=== PATIENT | female | born 1955 | race Caucasian/White ===

== ENCOUNTER 2019-01-21 13:40 | Observation (INO) | payer MEDICARE, OTHER, SELFPAY ==
[2019-01-21] VITALS (31 sets, daily range): BP systolic 111–171; BP diastolic 58–98; PULSE 53–72; RESP 10–22; TEMP 36.3–37; O2SAT 96–99
--- NOTE | 2019-01-21 13:59 | DI.RAD_ITS ---
SYMPTOMS/DIAGNOSIS: SYNCOPE, ? ACUTE DISEASE PA AND LATERAL CHEST: The heart is normal in size. The lungs are clear. The mediastinal structures and pleura appear intact. CONCLUSION: Normal chest.
--- NOTE | 2019-01-21 14:00 | W.ED.GENAD ---
Discharge Plan Disposition Patient Disposition: [facility] INPATIENT Condition: Stable Discharge Details Chief Complaint: Dizzy/Sync Clinical Impression: Syncope, Epigastric pain Admit Date/Time: 01/21/19 15:33 Admit Provider: Alireza Del Angel Attending Provider: Alireza Del Angel Primary Care Provider: Mateo Mars ED Provider: Cindi Vinson Discharge Data Discharge Date/Time-TO BE ENTERED AT DEPARTURE: 01/21/19 16:17 Medical Decision Making 1415 -- 63-year-old female with a history of myocarditis, GERD, depression, hypertension who presents with lightheadedness, diaphoresis, epigastric pain that started while going uphill on a bike with a syncopal episode upon getting off the bike today. She admits to a family history of cardiac disease and diabetes but denies any previous past medical history of diabetes or stent placement. EKG notes a rate of 61, sinus with no acute ST ischemic changes. Heart rate 50s. She is on a beta-andrea. Blood pressure mildly hypertensive 147/66. She is afebrile and appears nontoxic. She appears generally fatigued but no focal deficits. No acute findings on exam. No murmur, lungs clear, abdomen soft nontender. Suspicion high for a cardiac etiology based on history. Cardiac work-up ordered on arrival and will plan for admission for observation and serial troponins. 1500 -- Labs and imaging reviewed and unremarkable. Troponin negative. Glucose 128. Chest x-ray negative. 1515 -- Case discussed with hospitalist -accepts patient for admission. Medical Records Medical records reviewed: Yes I reviewed the patient's medical records. Imaging Data Radiologic Study: Radiologist's impression: PA AND LATERAL CHEST: The heart is normal in size. The lungs are clear. The mediastinal structures and pleura appear intact. CONCLUSION: Normal chest. Lab Data Lab results reviewed: Yes I reviewed the patient's lab results. Laboratory Tests Range/Units 01/21/19 01/21/19 13:50 13:50 WBC (4.4-10.8) k/cumm 5.92 RBC (4.00-5.20) m/cumm 5.21 H Hgb (12.0-15.5) g/dL 14.5 Hct (36.0-46.0) % 43.6 MCV (80-95) fL 83.7 MCH (27.0-33.0) pg 27.8 MCHC (32.0-36.0) g/dL 33.3 RDW (11.7-14.6) % 13.4 Plt Count (130-400) x1000/uL 440 H MPV (8.0-11.0) fL 9.9 Immature Gran % 0.2 Neutrophils % 63.6 Lymphocytes % 26.2 Monocytes % 7.3 Eosinophils % 2.5 Basophils % 0.2 Absolute Neutrophils (1.2-6.7) k/cumm 3.77 Absolute Lymphocytes (1.2-3.4) k/cumm 1.55 Absolute Monocytes (0.11-0.7) k/cumm 0.43 Absolute Eosinophils (0.0-0.7) k/cumm 0.15 Absolute Basophils (0.0-0.2) k/cumm 0.01 Sodium (136-145) mmol/L 138 Potassium (3.5-5.1) mmol/L 3.5 Chloride (98-107) mmol/L 100 Carbon Dioxide (21.0-32.0) mmol/L 25.1 Anion Gap (3-11) mmol/L 12.9 H BUN (7-18) mg/dL 7 Creatinine (0.55-1.02) mg/dL 1.16 H Estimated GFR/1.73 m2 (mL/min/1.73m2) 47.34 Glucose (70-100) mg/dL 128 H Calcium (8.5-10.1) mg/dL 9.3 Magnesium (1.8-2.4) mg/dL 2.1 Total Bilirubin (0.2-1.0) mg/dL 1.0 AST (15-37) U/L 31 ALT (12-78) U/L 65 Alkaline Phosphatase (46-116) U/L 86 Troponin I (0.00-0.06) ng/mL < 0.05 Total Protein (6.4-8.2) g/dL 8.5 H Albumin (3.4-5.0) g/dL 3.8 ECG Data Attestation: I personally reviewed and interpreted this ECG (s) as follows: Interpretation: Rate of 61, sinus, no acute ST elevation or depression. QTc 423. MA 180. QRS 89. HPI General Mode of arrival: ambulatory. Date/Time Provider Initiated Documentation: 01/21/19 13:57. Limitations to Documentation: no limitations. Information obtained by: patient. HPI Narrative: Patient is a 63-year-old female with a history of hypertension, myocarditis who presents the ED with complaint of syncopal episode while riding her bike today. She states she has been riding her bike over the summer but has not ridden over the past 2 weeks. She states today she was going up a hill when she became lightheaded and sweaty and dizzy with epigastric pain. She states she got to the top of the hill and got off her bike and passed out. She still admits to some epigastric discomfort and feeling generally fatigued but denies any chest pain or shortness of breath at this time. She states she has had similar symptoms of lightheadedness while riding her bike over the past few weeks, but not as significant with a syncopal episode today. Related Data Home Medications Medication Instructions Recorded Confirmed Mag Tab Sr 2 tab PO BID 01/21/19 amlodipine [Norvasc] 10 mg PO DAILY 01/21/19 01/21/19 ascorbic acid (vitamin C) [Vitamin 500 mg PO DAILY 01/21/19 01/21/19 C] aspirin [Aspir-Low] 81 mg PO DAILY 01/21/19 01/21/19 bisoprolol fumarate 5 mg PO DAILY 01/21/19 01/21/19 calcium carbonate-vitamin D3 1 tab PO DAILY 01/21/19 01/21/19 [Calcium 500 + D (D3)] doxepin 50 mg PO QHS 01/21/19 01/21/19 ergocalciferol (vitamin D2) 50,000 unit PO .Q2WEEK 01/21/19 01/21/19 [Vitamin D2] hydrochlorothiazide 25 mg PO DAILY 01/21/19 01/21/19 ibuprofen [IBU-200] 600 mg PO Q6H PRN 01/21/19 01/21/19 multivitamin 1 tab PO DAILY 01/21/19 01/21/19 pantoprazole [Protonix] 40 mg PO DAILY 01/21/19 01/21/19 Allergies Allergy/AdvReac Type Severity Reaction Status Date / Time adhesive tape Allergy paper Unverified 01/21/19 14:08 tape--blistering Iodinated Contrast Media Allergy Throat Unverified 01/21/19 14:08 closing sensation pirbuterol Allergy fainted Unverified 01/21/19 14:08 [From [facility]] Sulfa (Sulfonamide Allergy Skin Rash Unverified 01/21/19 13:55 Antibiotics) General Stated Complaint: Dizzy/Sync EDITH: 2 Review of Systems Review of Systems All systems reviewed & are unremarkable except as noted in HPI and below Constitutional Reports as per HPI, Denies chills and Denies fever(s) Eyes Denies blurry vision ENT Reports dizziness, Denies sore throat and Denies throat swelling Cardiovascular Denies chest pain, Reports syncope and Denies dyspnea Respiratory Denies cough and Denies dyspnea Gastrointestinal Reports abdominal pain, Denies diarrhea and Denies vomiting Genitourinary Denies hematuria and Denies dysuria Musculoskeletal Denies back pain and Denies numbness Integumentary/Breasts Denies lesions and Denies rash Neurologic Reports dizziness, Reports syncope, Denies focal weakness and Denies numbness Allergic/Immunologic Denies throat swelling [facility] Medical History Depression (Chronic) GERD (gastroesophageal reflux disease) (Chronic) HTN (hypertension) (Chronic) Myocarditis (Acute) Social History Smoking/Tobacco Use Status: Former Tobacco Use Alcohol Intake: never Substance use type: does not use Do you feel safe at home: Yes Do you feel safe in your relationship?: Yes Exam Const General: cooperative, healthy appearing and no acute distress [facility] Head: normal to inspection Face and sinus: normal facial exam Eyes General: appearance normal, both eyes and all related structures Pupils: PERRL EOM: EOM intact bilaterally Neck Neck: normal visual inspection and No submandibular swelling Lymphatic: no lymphadenopathy noted Chest Chest: normal inspection of the chest and no tenderness Resp Effort & Inspection: normal respiratory effort and able to speak in complete sentences Auscultation: clear to auscultation bilaterally Cardio Rate: regular rate Rhythm: regular rhythm GI Inspection: normal to inspection Palpation: soft, not firm, not rigid and nontender Auscultation: normal bowel sounds Skin General skin exam: no rashes or lesions noted Neuro General: alert, awake and oriented x3 Cognition: normal cognition Speech: speech normal Motor: muscle tone normal throughout Sensory Exam: no sensory deficits noted Extrem General: normal to inspection, full ROM, normal capillary refill, no calf tenderness bilaterally and no edema Psych Appearance: grossly normal Mental Status: mental status grossly normal Speech and Movement: speech and movement normal Affect: normal affect Course Vital Signs Temperature 97.9 F 01/21/19 13:51 Pulse 59 L 01/21/19 13:51 Respiratory Rate 22 01/21/19 13:51 Blood Pressure 147/66 H 01/21/19 13:51 Pulse Oximetry 99 01/21/19 13:51 Temperature 97.9 F 01/21/19 13:51 Temperature Source Temporal Artery Scan 01/21/19 13:51 Pulse 59 L 01/21/19 13:51 Respiratory Rate 22 01/21/19 13:51 Respiratory Effort Non-Labored 01/21/19 13:54 Blood Pressure 147/66 H 01/21/19 13:51 Blood Pressure Position Supine 01/21/19 13:51 Pulse Oximetry 99 01/21/19 13:51 Oxygen Delivery Method Room Air 01/21/19 13:51 Oxygen Flow Rate 0 01/21/19 13:51 Pain Level 2 01/21/19 13:51
[2019-01-21 14:09] LABS: Abs Immature Grans 0.01 k/cumm (0.0-0.09); Absolute Basophil Count 0.01 k/cumm (0.0-0.2); Absolute Eosinophil Count 0.15 k/cumm (0.0-0.7); Absolute Lymphocyte Count 1.55 k/cumm (1.2-3.4); Absolute Monocyte Count 0.43 k/cumm (0.11-0.7); Absolute Neutrophil Count 3.77 k/cumm (1.2-6.7); Basophils % 0.2; Eosinophils % 2.5; HCT 43.6 % (36.0-46.0); HGB 14.5 g/dL (12.0-15.5); Immature Grans % 0.2; Lymphocytes % 26.2; Mean Corp. HGB Concentration 33.3 g/dL (32.0-36.0); Mean Corpuscular Hemoglobin 27.8 pg (27.0-33.0); Mean Corpuscular Volume 83.7 fL (80-95); Mean Platelet Volume 9.9 fL (8.0-11.0); Monocytes % 7.3; Neutrophils % 63.6; Platelet Count 440 x1000/uL (130-400); RBC 5.21 m/cumm (4.00-5.20); RBC Distribution Width 13.4 % (11.7-14.6); White Blood Cell Count 5.92 k/cumm (4.4-10.8)
[2019-01-21] MEDS: Normal Saline 1,000 ML 1000 ML IV (14:10)
[2019-01-21 14:27] LABS: ALT 65 U/L (12-78); AST 31 U/L (15-37); Albumin 3.8 g/dL (3.4-5.0); Alkaline Phosphatase 86 U/L (46-116); Anion Gap 12.9 mmol/L (3-11); BUN 7 mg/dL (7-18); CO2 25.1 mmol/L (21.0-32.0); CREATININE 1.16 mg/dL (0.55-1.02); Calcium 9.3 mg/dL (8.5-10.1); Chloride 100 mmol/L (98-107); Estimated GFR 47.34 (mL/min/1.73m2); Glucose 128 mg/dL (70-100); Magnesium 2.1 mg/dL (1.8-2.4); Potassium 3.5 mmol/L (3.5-5.1); Sodium 138 mmol/L (136-145); Total Protein 8.5 g/dL (6.4-8.2); Troponin I < 0.05 ng/mL (0.00-0.06)
[2019-01-21] MEDS: Ondansetron 4 MG/2 ML VIAL IVP (15:09)
[2019-01-21] MEDS: Potassium Chloride 20 MEQ TABCR 40 MEQ PO (16:03)
--- NOTE | 2019-01-21 16:03 | W.PM.HP.N ---
Date of service: 01/21/19 Time of Service: 16:04 Assessment and Plan (1) Syncope: Current visit: Yes Status: Chronic Episode of exertional syncope in patient experiencing worsening sensations of dizziness/lightheadedness with exertion over the past few weeks. Mrs. Bob also has a significant family history of CAD, and now complaining of epigastric and left shoulder discomfort. ECG non-ischemic. - Rule out for ACS with serial cardiac biomarkers, and maintain on telemetry. - Check ECHO, and obtain exercise nuclear stress test in the morning. - Given patient's family history and current symptoms, suspicion for underlying CAD is high. Current Heart Score of 5. Continue daily ASA, BB therapy, and initiate high potency statin. If positive troponin will initiate anticoagulation as well. Await result for further testing, with low threshold for transfer. History of Present Illness Chief Complaint: Exertional Syncope Narrative: Very pleasant 63 year old woman with a prior history of HTN and DM, admitted from [facility] Emergency Department on 01/21 following a syncopal episode following an exertional activity. Mrs. Bob has a past Medical History significant for DM, HTN, GERD, and Depression. She also reports an episode of Chest Pain and pressure in 2004 with positive cardiac biomarkers that led to a negative LHC, eventually diagnosed with Myocarditis/Pericarditis. Her family history is significant for CAD in 2 brothers, 1 sister, her father, both grandfathers, a grandmother, and several aunts and uncles. The patient reports recent episodes of lightheadedness and feeling unwell following exertional activities over the last few weeks. Today she was riding her bike up an incline when she began to feel unwell, and had an apparent syncopal episode following. Her symptoms also included diaphoresis, nausea, and later epigastric pain and left shoulder discomfort. Work-up the ED showed an essentially normal ECG, negative initial troponin, and normal labs. Her CXR was also reportedly negative for pathology. Given her history she was admitted for further evaluation and treatment. Review of Systems Review of Systems All systems reviewed & are unremarkable except as noted in HPI and below PFSH Social History Smoking/Tobacco Use Status: Former Tobacco Use Alcohol Intake: never Substance use type: does not use Do you feel safe at home: Yes Do you feel safe in your relationship?: Yes Meds Home Medications Medication Instructions Recorded Confirmed Type Mag Tab Sr 2 tab PO BID 01/21/19 History amlodipine [Norvasc] 10 mg PO DAILY 01/21/19 01/21/19 History ascorbic acid (vitamin C) [Vitamin 500 mg PO DAILY 01/21/19 01/21/19 History C] aspirin [Aspir-Low] 81 mg PO DAILY 01/21/19 01/21/19 History bisoprolol fumarate 5 mg PO DAILY 01/21/19 01/21/19 History calcium carbonate-vitamin D3 1 tab PO DAILY 01/21/19 01/21/19 History [Calcium 500 + D (D3)] doxepin 50 mg PO QHS 01/21/19 01/21/19 History ergocalciferol (vitamin D2) 50,000 unit PO .Q2WEEK 01/21/19 01/21/19 History [Vitamin D2] hydrochlorothiazide 25 mg PO DAILY 01/21/19 01/21/19 History ibuprofen [IBU-200] 600 mg PO Q6H PRN 01/21/19 01/21/19 History multivitamin 1 tab PO DAILY 01/21/19 01/21/19 History pantoprazole [Protonix] 40 mg PO DAILY 01/21/19 01/21/19 History Allergies Allergy/AdvReac Type Severity Reaction Status Date / Time adhesive tape Allergy paper Unverified 01/21/19 14:08 tape--blistering Iodinated Contrast Media Allergy Throat Unverified 01/21/19 14:08 closing sensation pirbuterol Allergy fainted [facility]ver[facility]19 [facility] Sulfa (Sulfonamide Allergy Skin Rash Unverified 01/21/19 13:55 Antibiotics) Exam Narrative Exam Narrative: General: Patient appears comfortable, AAOX3, NAD Neck: Supple CV: Regular, nontachycardic, S1S2, No rubs, murmurs, or gallops. Pulmonary: Clear to auscultation bilaterally, no crackles, wheezing, or rhonchi Abdomen: + Bowel Sounds, soft, nondistended, mild subjective epigastric discomfort on palpation Vascular: No lower extremity edema Psych: Normal mood and affect. Results Labs : 01/21/19 13:50 01/21/19 13:50 Laboratory Results - last 24 hr 01/21/19 01/21/19 13:50 13:50 WBC 5.92 RBC 5.21 H Hgb 14.5 Hct 43.6 MCV 83.7 MCH 27.8 MCHC 33.3 RDW 13.4 Plt Count 440 H MPV 9.9 Immature Gran % 0.2 Neutrophils % 63.6 Lymphocytes % 26.2 Monocytes % 7.3 Eosinophils % 2.5 Basophils % 0.2 Absolute Neutrophils 3.77 Absolute Lymphocytes 1.55 Absolute Monocytes 0.43 Absolute Eosinophils 0.15 Absolute Basophils 0.01 Sodium 138 Potassium 3.5 Chloride 100 Carbon Dioxide 25.1 Anion Gap 12.9 H BUN 7 Creatinine 1.16 H Estimated GFR/1.73 m2 47.34 Glucose 128 H Calcium 9.3 Magnesium 2.1 Total Bilirubin 1.0 AST 31 ALT 65 Alkaline Phosphatase 86 Troponin I < 0.05 Total Protein 8.5 H Albumin 3.8 Last Vital Signs Temp 36.6 C 01/21/19 16:00 Pulse 67 01/21/19 16:00 Resp 14 01/21/19 16:00 BP 171/79 H 01/21/19 16:00 Pulse Ox 97 01/21/19 16:00
[2019-01-21] MEDS: Enoxaparin 40 MG/0.4 ML SYR SC (17:43)
--- NOTE | 2019-01-21 18:50 | NUR.NOTE ---
Pt admitted from ER to [facility]. Room 231. Pt is alert and oriented times 3. VSS. Lungs clear. positive BS. Pulses WNL. Oriented pt to room and call light, oriented pt to plan of care. Tele showing SB. Pt does complain of not feeling right. Dizzy when ambulating from bed to bathroom. Pt educated to use call light to ask for help when walking. Bed alarms are on. Nursing Note:
[2019-01-21 21:13] LABS: Troponin I < 0.05 ng/mL (0.00-0.06)
[2019-01-21] MEDS: Doxepin 50 MG CAP PO (21:14)
[2019-01-22] VITALS (11 sets, daily range): BP systolic 110–150; BP diastolic 66–101; PULSE 50–74; RESP 14–18; TEMP 36.2–37; O2SAT 97–99
[2019-01-22 01:01] LABS: Troponin I < 0.05 ng/mL (0.00-0.06)
[2019-01-22 06:04] LABS: Abs Immature Grans 0.01 k/cumm (0.0-0.09); Absolute Basophil Count 0.01 k/cumm (0.0-0.2); Absolute Eosinophil Count 0.17 k/cumm (0.0-0.7); Absolute Lymphocyte Count 2.08 k/cumm (1.2-3.4); Absolute Monocyte Count 0.47 k/cumm (0.11-0.7); Basophils % 0.2; HCT 41.1 % (36.0-46.0); HGB 13.7 g/dL (12.0-15.5); Immature Grans % 0.2; Lymphocytes % 36.2; Mean Corp. HGB Concentration 33.3 g/dL (32.0-36.0); Mean Corpuscular Hemoglobin 28.1 pg (27.0-33.0); Mean Corpuscular Volume 84.4 fL (80-95); Mean Platelet Volume 9.7 fL (8.0-11.0); Monocytes % 8.2; Neutrophils % 52.2; Platelet Count 412 x1000/uL (130-400); RBC 4.87 m/cumm (4.00-5.20); RBC Distribution Width 13.6 % (11.7-14.6); White Blood Cell Count 5.74 k/cumm (4.4-10.8)
[2019-01-22 06:20] LABS: Anion Gap 8.8 mmol/L (3-11); BUN 11 mg/dL (7-18); CO2 26.2 mmol/L (21.0-32.0); CREATININE 0.91 mg/dL (0.55-1.02); Calcium 9.1 mg/dL (8.5-10.1); Chloride 102 mmol/L (98-107); Glucose 96 mg/dL (70-100); Magnesium 2.1 mg/dL (1.8-2.4); Potassium 4.3 mmol/L (3.5-5.1); Sodium 137 mmol/L (136-145)
[2019-01-22 06:23] LABS: Troponin I < 0.05 ng/mL (0.00-0.06)
[2019-01-22 06:35] LABS: Calculated LDL 148 mg/dL; Cholesterol 219 mg/dL (50-200); HDL Cholesterol 56 mg/dL (40-60); Triglyceride 79 mg/dL (30-150)
[2019-01-22 07:49] LABS: Hemoglobin A1C 5.6 % (4.5-6.2)
--- NOTE | 2019-01-22 08:02 | PHARADMIT ---
Admission Pharmacy Clinical Review CHEST PAIN SYNCOPE Code Status Full Code Current Weight 83.7 kg Renally Cleared and Narrow Therapeutic Index Meds CRCL ~51ML/MIN QTc Value / Action Taken 423 BP Control, Fever 150/75 AFEBRILE Electrolytes reviewed OK DVT Prophylaxis ENOXAPARIN Opiate Usage / Scheduled Bowel Regimen Ordered NO/PRN Plt/SCr for Heparin / Enoxaparin 412/0.91 INR for Warfarin NA H/H stable, WBC/Bands 13.7/41.1 WBC 5.74 Antibiotic appropriateness NA Cultures and Sensitivities NA Surgical ABX d/c within 24 hr NA DM control / Insulin Dosing NA Heart Failure (Check EF%) (NICOLAS's, B-Block, Diuretics) CHF NOT LISTED BUT ON BISOPROLOL,AMLODIPINE AND HCTZ IV to PO Switch Home Meds Reviewed Home Meds Not Ordered Mag Tab Sr 2 tab PO BID Comments
[2019-01-22] MEDS: amLODIPine 10 MG TAB PO (08:20)
[2019-01-22] MEDS: hydroCHLOROthiazide 25 MG TAB PO (08:20)
[2019-01-22] MEDS: Multivitamin TAB 1 TAB PO (08:21)
[2019-01-22] MEDS: Pantoprazole 40 MG TABCR PO (08:22)
[2019-01-22] MEDS: Aspirin E.C. 81 MG TABEC PO (08:22)
[2019-01-22] MEDS: Ascorbic Acid 500 MG TAB PO (08:22)
--- NOTE | 2019-01-22 08:43 | INITIAL_ITS ---
Care Management Initial Assess REASON FOR HOSPITALIZATION:: Chest Pain, Syncope PAST MEDICAL HISTORY/PAST SURGICAL HISTORY:: Depression, GERD, HTN, Myocarditis PREVIOUS FUNCTIONAL STATUS/SOCIAL/FAMILY SUPPORTS:: Susanna resides in [place]. She is independent at baseline and was bike riding when she experienced the symptoms leading to her admission. She has two daughters that reside seperately in [place]. CURRENT FUNCTIONAL STATUS:: Susanna is out of the room due to work up testing. Her patiently awaits her return. ADVANCE DIRECTIVES:: None on file at [facility]. Has patient been provided with information about the portal?: No Did the patient sign up for the portal?: No CODE STATUS:: Full Code INSURANCE COVERAGE / FINANCIAL ISSUES:: [employer], Medicare CURRENT HOME/COMMUNITY SERVICES/EQUIPMENT:: No current services or equipment. PRIMARY CARE PHYSICIAN:: Mateo Mars POTENTIAL DISCHARGE NEEDS:: Work-up for chest pain, MPI stress test. PATIENT/FAMILY EDUCATION NEEDS:: Review discharge instructions, discuss Ask Me Three. ANTICIPATED BARRIERS TO DISCHARGE:: None identified at this time. TRANSPORTATION:: Dependent on disposition. PLAN:: Susanna will have a work up incluing imaging and MPI stress test. She will either transfer or discharge home with an outpatient follow up plan per MD. Transportation dependent on disposition.
--- NOTE | 2019-01-22 09:00 | MERGE_ITS ---
*[facility]* *[facility]* [address] [place] [address] Date of study: 01/22/2019 Transthoracic Echocardiography M-mode, complete 2D, complete spectral Doppler, and color Doppler *STUDY CONCLUSIONS* Summary: 1. Left ventricle: The cavity size was normal. There was mild focal basal hypertrophy of the septum. Systolic function was normal. The estimated ejection fraction was 55-60%. There was no dynamic obstruction. Wall motion was normal; there were no regional wall motion abnormalities. Findings consistent with diastolic dysfunction. Doppler parameters are consistent with high ventricular filling pressure. 2. Right ventricle: The cavity size was normal. Wall thickness was normal. Systolic function was normal. *PATIENT PRESENTATION* Height: 160cm (63in ) S/D Pressure: 110 / 70 Weight: 83.5kg (183.6lb ) BSA: 1.96m^2 Test start time: 09:10 AM. Test stop time: 10:00 AM. PERFORMING Unknown CONSULTING Alireza Del Angel ORDERING Alireza Del Angel REFERRING Alireza Del Angel PERFORMING [facility] PIE FILLER RT Jonathon Bennett)(SHAYNE), KRISTA *PROCEDURE DATA* Procedure information: The patient was identified by two identifiers. This study was interpreted by [facility]. Pertinent images and digital data are archived for permanent storage and are available for subsequent review. No prior study was available for comparison. Study status: Routine. Transthoracic echocardiography. M-mode, complete 2D, complete spectral Doppler, and color Doppler. A Transthoracic Echocardiogram was performed. Scanning was performed from the parasternal, apical, subcostal, and suprasternal notch acoustic windows. Images were obtained using an [id number] cardiac ultrasound machine. Image quality was adequate. Study completion: The patient tolerated the procedure well. There were no complications. History: PMH: Chest pain with syncope. *CARDIAC ANATOMY* Left ventricle: The cavity size was normal. There was mild focal basal hypertrophy of the septum. Systolic function was normal. The estimated ejection fraction was 55-60%. There was no dynamic obstruction. Wall motion was normal; there were no regional wall motion abnormalities. Findings consistent with diastolic dysfunction. Doppler parameters are consistent with high ventricular filling pressure. Aortic valve: Trileaflet; normal thickness leaflets. Mobility was not restricted. Doppler: Transvalvular velocity was within the normal range. There was no stenosis. There was no significant regurgitation. VTI ratio of LVOT to aortic valve: 0.79. Valve area (VTI): 2.2cm^2. Indexed valve area (VTI): 1.1cm^2/m^2. Peak velocity ratio of LVOT to aortic valve: 0.84. Valve area (Vmax): 2.3cm^2. Indexed valve area (Vmax): 1.2cm^2/m^2. Mean velocity ratio of LVOT to aortic valve: 0.83. Valve area (Vmean): 2.3cm^2. Indexed valve area (Vmean): 1.2cm^2/m^2. Mean gradient (S): 4.2mm Hg. Peak gradient (S): 7.8mm Hg. Aorta: Aortic root: The aortic root was normal in size. Ascending aorta: The ascending aorta was normal in size. Mitral valve: Structurally normal valve. Mobility was not restricted. Doppler: Transvalvular velocity was within the normal range. There was no evidence for stenosis. There was trivial regurgitation. Valve area by pressure half-time: 4.4cm^2. Indexed valve area by pressure half-time: 2.3cm^2/m^2. Peak gradient (D): 5.4mm Hg. Left atrium: The atrium was normal in size. Right ventricle: The cavity size was normal. Wall thickness was normal. Systolic function was normal. Pulmonic valve: Doppler: Transvalvular velocity was within the normal range. There was no evidence for stenosis. There was no significant regurgitation. Peak gradient (S): 2.7mm Hg. Tricuspid valve: Structurally normal valve. Doppler: Transvalvular velocity was within the normal range. There was no evidence for stenosis. There was trivial regurgitation. Pulmonary artery: Pulmonary systolic pressure was within the normal range, in the range of 25mm Hg to 30mm Hg. Right atrium: The atrium was normal in size. Pericardium: There was no pericardial effusion. Systemic veins: Inferior vena cava: Not well visualized. The vessel was patent and normal in size. The respirophasic diameter changes were in the normal range (greater than or equal to 50%). Baseline ECG: Bradycardia. Measurements Left ventricle Value Reference LV ID, ED, PLAX 4.6 cm 3.5 - 6.0 LV ID, ES, PLAX 2.9 cm 2.1 - 4.0 LV PW thickness, ED, PLAX 0.9 cm LV end-diastolic volume, 1-p A2C 69 ml LV ejection fraction, 1-p A2C 64 % LV end-diastolic volume, 1-p A4C 61 ml LV ejection fraction, 1-p A4C 54 % LV e', lateral 0.093 m/sec LV E/e', lateral 13 LV e', medial 0.06 m/sec LV E/e', medial 20 LV e', average 0.076 m/sec LV E/e', average 15 Ventricular septum Value Reference IVS thickness, ED, PLAX 0.9 cm LVOT Value Reference LVOT ID, A-P 1.9 cm LVOT area 2.7 cm^2 LVOT peak velocity, S 1.17 m/sec LVOT mean velocity, S 0.81 m/sec LVOT VTI, S 29.4 cm LVOT peak gradient, S 5.5 mm Hg LVOT mean gradient, S 3 mm Hg Stroke volume (SV), LVOT DP 81 ml Stroke index (SV/bsa), LVOT DP 41 ml/m^2 Aortic valve Value Reference Aortic valve peak velocity, S 1.4 m/sec Aortic valve mean velocity, S 1 m/sec Aortic valve VTI, S 37.0 cm Aortic mean gradient, S 4.2 mm Hg Aortic peak gradient, S 7.8 mm Hg VTI ratio, LVOT/AV 0.79 Aortic valve area, VTI 2.2 cm^2 Velocity ratio, peak, LVOT/AV 0.84 Aortic valve area, peak velocity 2.3 cm^2 Velocity ratio, mean, LVOT/AV 0.83 Aortic valve area, mean velocity 2.3 cm^2 Aortic valve area/bsa, mean velocity 1.2 cm^2/m^2 Aorta Value Reference Aortic root ID, ED 2.6 cm Ascending aorta ID, A-P, S 2.8 cm Left atrium Value Reference LA ID, A-P, ES 3.0 cm LA ID/bsa, A-P 1.5 cm/m^2 <=2.2 LA volume/bsa, ES, 1-p A4C 22 ml/m^2 LA volume, ES, 2-p 40 ml LA volume/bsa, ES, 2-p 20 ml/m^2 LA/aortic root ratio 1.14 Mitral valve Value Reference Mitral E-wave peak velocity 1.17 m/sec Mitral A-wave peak velocity 0.99 m/sec Mitral deceleration time 171 ms 150 - 230 Mitral pressure half-time 50 ms Mitral peak gradient, D 5.4 mm Hg Mitral E/A ratio, peak 1.17 Mitral valve area, PHT, DP 4.4 cm^2 Pulmonary veins Value Reference Pulmonary vein peak velocity, S 0.66 m/sec Pulmonary vein peak velocity, D 0.8 m/sec Pulmonary vein velocity ratio, peak, 0.82 S/D Pulmonary vein A-wave reversal peak 0.29 m/sec velocity Tricuspid valve Value Reference Tricuspid regurg peak velocity 2.4 m/sec Tricuspid peak RV-RA gradient 22.7 mm Hg Right atrium Value Reference RA area, ES, A4C 11.1 cm^2 8.3 - 19.5 Pulmonic valve Value Reference Pulmonic peak gradient, S 2.7 mm Hg Pulmonic regurg velocity, ED 0.83 m/sec Legend: (L) and (H) alexis values outside specified reference range. I have personally reviewed the images and have reviewed and edited the reported findings. Electronically signed by Ricardo Pennington 01/22/2019 10:39
--- NOTE | 2019-01-22 10:30 | MERGEMPI_ITS ---
*[facility]* *[facility]* [address] [place] [address] Myocardial Perfusion Imaging - SPECT Regadenoson Date of study: 01/22/2019 *PATIENT PRESENTATION* Height: 157.5cm (62in) Blood Pressure: Weight: 81.8kg (180lb) BSA: 1.93m^2 Referring physician: Ricardo Pennington Ordering physician: Alireza Del Angel Impressions: - Normal myocardial perfusion and contraction after pharmacological stress. - Low risk of cardiac events but higher compared to non-diabetics. Summary: 1. Myocardial perfusion imaging: No myocardial perfusion defects noted. 2. The calculated left ventricular ejection fraction after stress: 75%. LV global systolic function is normal. No left ventricular regional motion abnormality. 3. Baseline ECG: Normal ECG. Indication: R07.9, Appropriate Use Criteria: A (Appropriate). History: REASON FOR TESTING: EXERTIONAL SYNCOPE OVER THE PASET FEW WEEKS, NOW C/O EPIGASTRIC PAIN AND LEFT SHOULDER DISCOMFORT. HAD DIAPHORESIS AND NAUSEA BEFORE PASSING OUT. PMH: HYPERTENSION, DIABETES, GERD, DEPRESSION, HYOCARDITIS/PERICARDITIS IN 2004. SPINAL STENOSIS. FAMILY HX: CAD IN 2 BROTHERSI SISTER, FATHER AND GRANDPARENTS. SMOKING: QUIT 41 YEARS AGO. HAD SMOKED 1 PPDX 3 YEARS. EXCERCISE: BIKE RIDING OCCASIONALLY. Risk factors: Cholesterol: 219mg/dl. HDL: 56mg/dl. LDL: 148mg/dl. Triglycerides: 79mg/dl. ALLERGIES: ADHESIVE TAPE, IODINATED CONTRAST MEDIUM, PIRBUTEROL, SULFA. HOME MDEICATIONS: AMLODIPINE 10 MG DAILY, ASCORBIC ACID 500 MG DAILY, ASPIRIN 81 MG DAILY, BISOPROLOL FUMARATE 5 MG DAILY, CALCIUM CARBONATE-VIT D 3 1 DAILY, DOXEPIN 50 MG HS, ERGOCALCIFEROL 50,000 UNITS Q 2 WEEKS, HYDROCHLOROTHIAZIDE 25 MG DAILY, IBUPROFEN 600 MG PRN, MAG TAB SR 2 TABS BID, MULTIVITAMIN 1 DAILY, PANTOPRAZOLE 40 MG DAILY. Imaging Technique: Protocol: Regadenoson. Acquisition: Gated SPECT; 1 day - rest/stress. The patient was imaged in the supine position. Attenuation correction used. Isotope administration: - Rest. Tc[99m]-sestamibi. Dose: 10.6mCi. Injection time: 10:15 AM. Injection to stress time: 00:45. - Stress. Tc[99m]-sestamibi. Dose: 33mCi. Injection time: 11:25 AM. 1-2 min before end of exercise Baseline ECG: LAST EKG 01/21/19- SINUS RHYTHM, HR 81. TODAY'S EKG-SINUS RHYTHM, HR 60. Normal ECG. Stress protocol: +--------+--+ + + !Stage !HR!BP (mmHg) !Comments ! +--------+--+ + + !Baseline!60!150/72 (98) ! ! +--------+--+ + + !1 min !90!180/60 (100)!Inject Regadenoson.! +--------+--+ + + !3 min !99!174/60 (98) ! ! +--------+--+ + + !5 min !--! !NTG 0.4 MG SL ! +--------+--+ + + !6 min !98!180/58 (99) ! ! +--------+--+ + + !9 min !98!178/80 (113)! ! +--------+--+ + + !10 min !--! !NTG 0.4 MG SL. ! +--------+--+ + + !13 !85!178/54 (95) ! ! +--------+--+ + + !15 min !88!180/72 (108)! ! +--------+--+ + + * Stress results: The rate-pressure product for the peak heart rate and blood pressure was 12337uj Hg/min. Stress ECG: LEXISCAN TESTING ENDED IN 15 MINS DUE TO MEDICATION EFFECT NO LONGER PRESENT. MAX HR WAS 107, WITH A HYPERTENSIVE BLOOD PRESSURE RESPONSE. ECTOPY:NO ECTOPY SEEN. ANGINA: AT 2 MINS OF TESTING,PT REPORTED CHEST HEAVINESS THAT PROGRESSED TO 8/10 CHEST HEAVINESS. MEDICATED AT 5 MINS OF TESTING WITH NITROGLYCERIN 0.4 MG SL, CHEST HEAVINESS PERSISTED. MEDICATED AGAIN WITH NITROGLYCERIN 0.4 MG SL AT 1130 OF TESTING. CHEST HEAVINESS DECREASED TO JUST NOTICIBLE AT 15 MINS OF TESTING. PT TO [employer] FOR SCANNING. PRIOR TO SCANNING, NO CHEST PRESSURE OR HEAVINESS REPORTED. ISCHEMIA: MINIMAL ST DEPRESSIONS NOTED TO LEADS II,III, AVF. Myocardial perfusion: Imaging information: gated. Image quality reduced due to subdiaphragmatic activity. Left ventricular size is normal. No myocardial perfusion defects noted. Ventricular Function (Wall Motion): The calculated left ventricular ejection fraction after stress: 75%. LV global systolic function is normal. No left ventricular regional motion abnormality. Study data: Ricardo Pennington MD supervised and was readily available during the procedure. This study was interpreted by [facility]. Study status: Routine. Consent: The risks, benefits, and alternatives to the procedure were explained to the patient and informed consent was obtained. Procedure: Initial setup. A baseline ECG was recorded. Surface ECG leads and manual cuff blood pressure measurements were monitored. Heart sounds: Normal. Lung sounds: Normal. Regadenoson stress test. Stress testing was performed, with regadenoson by intravenous bolus, for a total dose of 0.4mgover 10.00sec, followed by a 5ml saline flush. The infusion was terminated due to per protocol. The patient was unable to exercise due to other circumstances. The patient was unable to exercise due to TREADMILL UNAVAILABLE. Study completion: All catheters inserted during the procedure were removed. The patient tolerated the procedure well and was discharged from the lab. Discharge: The patient left the laboratory in stable condition. Birthdate: Patient birthdate: 1955. Sex: Gender: female. Study date: Study date: 01/22/2019. Study time: 00:01 AM. Signature Documentation: - The imaging portion of this study was interpreted by Nuclear Super[facility] Ricardo Pennington MD. - The Stress ECG portion of this study was interpreted by Ricardo Pennington MD. Electronically signed by Ricardo Pennington 01/22/2019 13:10
--- NOTE | 2019-01-22 11:16 | W.PM.PROGNOT ---
Date of Service Date of service: 01/22/19 Time of Service: 11:16 Assessment and Plan (1) Syncope: Current visit: Yes Status: Chronic Episode of exertional syncope in patient experiencing worsening sensations of dizziness/lightheadedness with exertion over the past few weeks. Mrs. Bob also has a significant family history of CAD, and now complaining of epigastric and left shoulder discomfort. ECG non-ischemic. - Ruled out for ACS with serial cardiac biomarkers. - Telemetry with sinus bradycardia (HR 50-60's). - ECHO with Diastolic Dysfunction, but otherwise completely normal and without structural heart disease. - Nuclear stress negative and considered low risk. Patient's chest pressure during the procedure potentially side effect of Regadenoson injection. - Given patient's family history and current symptoms, suspicion for underlying CAD was high. Current Heart Score of 5. Discussed case both with local cardiology as well as cardiology at [facility] - will continue daily ASA, BB therapy, and initiated high potency statin. Will plan on Exercise Treadmill Test as an outpatient - unfortunately, currently the treadmill is not functioning and cannot be obtained locally. - No gross evidence of structural heart disease, and no arrhythmias by telemetry. Will check orthostatic vital signs. Subjective Interval history since last seen: Very pleasant 63 year old woman with a prior history of HTN and DM, admitted from [facility] Emergency Department on 01/21 following a syncopal episode following an exertional activity. Mrs. Bob has a past Medical History significant for DM, HTN, GERD, and Depression. She also reports an episode of Chest Pain and pressure in 2004 with positive cardiac biomarkers that led to a negative LHC, eventually diagnosed with Myocarditis/Pericarditis. Her family history is significant for CAD in 2 brothers, 1 sister, her father, both grandfathers, a grandmother, and several aunts and uncles. The patient reported recent episodes of lightheadedness and feeling unwell following exertional activities over the last few weeks. On the day of admission she was riding her bike up an incline when she began to feel unwell, and had an apparent syncopal episode following. Her symptoms also included diaphoresis, nausea, and later epigastric pain and left shoulder discomfort. Work-up the ED showed an essentially normal ECG, negative initial troponin, and normal labs. Her CXR was also negative for pathology. Given her history she was admitted for further evaluation and treatment. Mrs. Bob underwent a nuclear stress test today - unfortunately due to mechanical problems this was not a treadmill test. After administration of the Lexiscan she developed chest pressure - however, her study was interpreted as low risk for ischemia. Her ECHO showed diastolic dysfunction, but no evidence of structural heart disease. Telemetry showed sinus rhythm with some bradycardia, but no arrhythmias or pauses. She has not had any further recurrence of syncopal episodes. No overnight events. Remains afebrile. Exam Narrative Exam Narrative: General: Patient appears comfortable, AAOX3, NAD Neck: Supple CV: Regular, nontachycardic, S1S2, No rubs, murmurs, or gallops. Pulmonary: Clear to auscultation bilaterally, no crackles, wheezing, or rhonchi Abdomen: + Bowel Sounds, soft, nondistended, mild subjective epigastric discomfort on palpation Vascular: No lower extremity edema Psych: Normal mood and affect. Objective Objective Clinical Data: Abnormal lab results 01/21/19 01/21/19 01/22/19 Range/Units 13:50 13:50 05:45 RBC 5.21 H (4.00-5.20) m/cumm Plt Count 440 H (130-400) x1000/uL Anion Gap 12.9 H (3-11) mmol/L Creatinine 1.16 H (0.55-1.02) mg/dL Glucose 128 H (70-100) mg/dL Total Protein 8.5 H (6.4-8.2) g/dL Total Cholesterol 219 H (50-200) mg/dL 01/22/19 Range/Units 05:45 RBC (4.00-5.20) m/cumm Plt Count 412 H (130-400) x1000/uL Anion Gap (3-11) mmol/L Creatinine (0.55-1.02) mg/dL Glucose (70-100) mg/dL Total Protein (6.4-8.2) g/dL Total Cholesterol (50-200) mg/dL Vital Signs Temperature 36.6 C 01/22/19 07:48 Temperature Source Tympanic 01/22/19 07:48 Pulse 50 L 01/22/19 08:04 Pulse Rhythm Regular 01/22/19 08:25 Pulse 66 01/21/19 16:00 Respiratory Rate 16 01/22/19 07:48 Respiratory Effort Non-Labored 01/22/19 08:25 Respiratory Depth Normal 01/22/19 08:25 Respiratory Pattern Normal 01/22/19 08:25 Blood Pressure 150/75 H 01/22/19 07:48 Blood Pressure Mean 100 01/21/19 15:46 Blood Pressure Position Supine 01/21/19 13:51 Pulse Oximetry 98 01/22/19 07:48 Oxygen Delivery Method Room Air 01/22/19 07:48 Oxygen Flow Rate 0 01/22/19 07:48 Pain Level 0 01/22/19 03:15 Comment 01/21/19 16:27 Intake & Output 01/21/19 01/21/19 01/22/19 11:59 23:59 11:59 Intake Total 1300 / 1300 150 / 150 Output Total 1999 600 / 600 Balance -700 / -700 -450 / -450 Weight 83.7 kg Intake: IV 1000 / 1000 Oral 300 / 300 150 / 150 Output: Urine 1999 600 / 600 Other: Urine Color Yellow Yellow Urine Appearance Clear Clear Urine Odor Normal Normal Voiding Methods Toilet Toilet Laboratory Results WBC 5.74 k/cumm (4.4-10.8) 01/22/19 05:45 RBC 4.87 m/cumm (4.00-5.20) 01/22/19 05:45 Hgb 13.7 g/dL (12.0-15.5) 01/22/19 05:45 Hct 41.1 % (36.0-46.0) 01/22/19 05:45 MCV 84.4 fL (80-95) 01/22/19 05:45 MCH 28.1 pg (27.0-33.0) 01/22/19 05:45 MCHC 33.3 g/dL (32.0-36.0) 01/22/19 05:45 RDW 13.6 % (11.7-14.6) 01/22/19 05:45 Plt Count 412 x1000/uL (130-400) H 01/22/19 05:45 MPV 9.7 fL (8.0-11.0) 01/22/19 05:45 Immature Gran % 0.2 01/22/19 05:45 52.2 01/22/19 05:45 36.2 01/22/19 05:45 8.2 01/22/19 05:45 3.0 01/22/19 05:45 0.2 01/22/19 05:45 Absolute Neutrophils 3.00 k/cumm (1.2-6.7) 01/22/19 05:45 Absolute Lymphocytes 2.08 k/cumm (1.2-3.4) 01/22/19 05:45 Absolute Monocytes 0.47 k/cumm (0.11-0.7) 01/22/19 05:45 Absolute Eosinophils 0.17 k/cumm (0.0-0.7) 01/22/19 05:45 Absolute Basophils 0.01 k/cumm (0.0-0.2) 01/22/19 05:45 Sodium 137 mmol/L (136-145) 01/22/19 05:45 Potassium 4.3 mmol/L (3.5-5.1) D 01/22/19 05:45 Chloride 102 mmol/L (98-107) 01/22/19 05:45 Carbon Dioxide 26.2 mmol/L (21.0-32.0) 01/22/19 05:45 8.8 mmol/L (3-11) 01/22/19 05:45 BUN 11 mg/dL (7-18) 01/22/19 05:45 0.91 mg/dL (0.55-1.02) 01/22/19 05:45 >= 60.00 (mL/min/1.73m2) 01/22/19 05:45 Glucose 96 mg/dL (70-100) 01/22/19 05:45 5.6 % (4.5-6.2) 01/22/19 05:45 Calcium 9.1 mg/dL (8.5-10.1) 01/22/19 05:45 Magnesium 2.1 mg/dL (1.8-2.4) 01/22/19 05:45 1.0 mg/dL (0.2-1.0) 01/21/19 13:50 AST 31 U/L (15-37) 01/21/19 13:50 ALT 65 U/L (12-78) 01/21/19 13:50 86 U/L (46-116) 01/21/19 13:50 < 0.05 ng/mL (0.00-0.06) 01/22/19 05:45 8.5 g/dL (6.4-8.2) H 01/21/19 13:50 3.8 g/dL (3.4-5.0) 01/21/19 13:50 Triglycerides 79 mg/dL (30-150) 01/22/19 05:45 219 mg/dL (50-200) H 01/22/19 05:45 LDL Cholesterol, Calc 148 mg/dL 01/22/19 05:45 56 mg/dL (40-60) 01/22/19 05:45
[2019-01-22] MEDS: Regadenoson 0.4 MG/5 ML SYR IVP (11:22)
--- NOTE | 2019-01-22 13:34 | CHAPLAIN ---
Susanna was having a cardiac test when I visited and I had a conversation with her . I explained my role and offered support. Susanna's said they are awaiting test results to determine what the next steps will be.
--- NOTE | 2019-01-22 15:40 | DI.US_ITS ---
SYMPTOMS/DIAGNOSIS: EXERTIONAL SYNCOPE, CHEST PAIN BILATERAL DUPLEX CAROTID ULTRASOUND: Duplex evaluation of the carotid circulation was performed according to the usual protocol. There is mild visible plaque in the carotid bifurcation on the right and the proximal left internal carotid artery. Flow velocities in common and internal carotid arteries are within normal limits. Mildly elevated flow velocity in left external carotid artery. Bilateral antegrade vertebral flow noted. CONCLUSION: No evidence of hemodynamically significant carotid stenosis.
[2019-01-22] MEDS: Enoxaparin 40 MG/0.4 ML SYR SC (16:26)
[2019-01-22] MEDS: Doxepin 50 MG CAP PO (22:04)
[2019-01-23] VITALS: PULSE 55
[2019-01-23 03:30] VITALS: BP 116/58; PULSE 58; RESP 18; TEMP 36.7; O2SAT 98
[2019-01-23 06:36] LABS: Abs Immature Grans 0.01 k/cumm (0.0-0.09); Absolute Basophil Count 0.01 k/cumm (0.0-0.2); Absolute Eosinophil Count 0.14 k/cumm (0.0-0.7); Absolute Lymphocyte Count 1.58 k/cumm (1.2-3.4); Absolute Monocyte Count 0.37 k/cumm (0.11-0.7); Absolute Neutrophil Count 2.81 k/cumm (1.2-6.7); Basophils % 0.2; Eosinophils % 2.8; HCT 40.9 % (36.0-46.0); HGB 13.7 g/dL (12.0-15.5); Immature Grans % 0.2; Lymphocytes % 32.1; Mean Corp. HGB Concentration 33.5 g/dL (32.0-36.0); Mean Corpuscular Volume 83.6 fL (80-95); Mean Platelet Volume 9.6 fL (8.0-11.0); Monocytes % 7.5; Neutrophils % 57.2; Platelet Count 376 x1000/uL (130-400); RBC 4.89 m/cumm (4.00-5.20); RBC Distribution Width 13.4 % (11.7-14.6); White Blood Cell Count 4.92 k/cumm (4.4-10.8)
[2019-01-23 06:42] LABS: Anion Gap 8.7 mmol/L (3-11); BUN 16 mg/dL (7-18); CO2 28.3 mmol/L (21.0-32.0); CREATININE 1.01 mg/dL (0.55-1.02); Calcium 9.2 mg/dL (8.5-10.1); Chloride 98 mmol/L (98-107); Estimated GFR 55.54 (mL/min/1.73m2); Glucose 97 mg/dL (70-100); Magnesium 1.7 mg/dL (1.8-2.4); Potassium 4.1 mmol/L (3.5-5.1); Sodium 135 mmol/L (136-145)
[2019-01-23 07:23] VITALS: PULSE 47
[2019-01-23] MEDS: Ascorbic Acid 500 MG TAB PO (07:39)
[2019-01-23] MEDS: hydroCHLOROthiazide 25 MG TAB PO (07:40)
[2019-01-23] MEDS: Aspirin E.C. 81 MG TABEC PO (07:40)
[2019-01-23] MEDS: Bisoprolol 5 MG TAB PO (07:40)
[2019-01-23] MEDS: Pantoprazole 40 MG TABCR PO (07:41)
[2019-01-23] MEDS: Multivitamin TAB 1 TAB PO (07:41)
[2019-01-23] MEDS: amLODIPine 10 MG TAB PO (07:41)
[2019-01-23] MEDS: Normal Saline Flush 10 ML SYR IVP (07:43)
[2019-01-23 07:48] VITALS: BP 142/78; PULSE 58; RESP 16; TEMP 36; O2SAT 99
[2019-01-23] MEDS: Magnesium Oxide 400 MG TAB 800 MG PO (08:55)
--- NOTE | 2019-01-23 09:40 | DSE_ITS ---
Date of service: 01/23/19 Time of Service: 09:40 DS: Diagnosis Discharge Diagnosis (1) Syncope: Status: Chronic Discharge Plan Disposition Patient Disposition: HOME Condition: Stable Discharge Details Chief Complaint: Dizzy/Sync Clinical Impression: Syncope, Epigastric pain Reason For Visit: CHEST PAIN,SYNCOPE Admit Date/Time: 01/21/19 15:33 Admit Provider: Alireza Del Angel Attending Provider: Alireza Del Angel Primary Care Provider: Mateo Mars ED Provider: Cindi Vinson Hospital Course Hospital Course: Chief Complaint: Syncope HPI: Very pleasant 63 year old woman with a prior history of HTN, admitted from [facility] Emergency Department on 01/21 following a syncopal episode following an exertional activity. Mrs. Bob has a past Medical History significant for HTN, GERD, and Depression. She also reports an episode of Chest Pain and pressure in 2004 with positive cardiac biomarkers that led to a negative LHC, eventually diagnosed with Myocarditis/Pericarditis. Her family history is significant for CAD in 2 brothers, 1 sister, her father, both grandfathers, a grandmother, and several aunts and uncles. The patient reported recent episodes of lightheadedness and feeling unwell following exertional activities over the last few weeks. On the day of admission she was riding her bike up an incline when she began to feel unwell, and had an apparent syncopal episode following. Her symptoms also included diaphoresis, nausea, and later epigastric pain and left shoulder discomfort. Work-up the ED showed an essentially normal ECG, negative initial troponin, and normal labs. Her CXR was also negative for pathology. Given her history she was admitted for further evaluation and treatment. Mrs. Bob underwent a nuclear stress test on 01/22 - unfortunately due to mechanical problems this was not a treadmill test. After administration of the Lexiscan she developed chest pressure - however, her study was interpreted as low risk for ischemia. Her ECHO showed diastolic dysfunction, but no evidence of structural heart disease, wall motion abnormalities, or depressed EF. Telemetry showed sinus rhythm with some bradycardia, but no arrhythmias or pauses. She has not had any further recurrence of syncopal episodes. Carotid Ultrasound was negative, and orthostatic vital signs were normal. Immediately prior to discharge it was reported that the treadmill portion of the stress machine was repaired, and Mrs. Bob underwent an exercise treadmill stress test, reaching target HR and maximal exercise, officially interpreted as a normal study without arrhythmias. No overnight events. Remains afebrile. Hospital Course: (1) Syncope: Episode of exertional syncope in patient experiencing worsening sensations of dizziness/lightheadedness with exertion over the past few weeks. Mrs. Bob also has a significant family history of CAD. ECG non-ischemic, and serial troponins negative. - Ruled out for ACS with serial cardiac biomarkers. - Telemetry with sinus bradycardia (HR 50-60's). - No gross evidence of structural heart disease, and no arrhythmias by telemetry. - Carotid ultrasound negative, and orthostatic vital signs essentially normal. - ECHO with Diastolic Dysfunction, but otherwise normal, with preserved EF, without structural heart disease, and no wall motion abnormalities. - Nuclear stress negative and considered low risk. Patient's chest pressure during the procedure deemed likely side effect of Regadenoson injection per discussion with cards. - Discussed case both with local cardiology as well as cardiology at [facility] - decision was to obtain a treadmill exercise stress test, and as this component was repaired immediately prior to patient's discharge she underwent a successful ETT, achieving target HR and maximal exercise - officially interpreted as a noraml study. Unsure of etiology for patient's symptoms, although she reports having started to feel lightheaded after the initiation of Bisoprolol - previously tolerated low dose Metoprolol. Will continue daily ASA, BB therapy but with change to metoprolol. Recommended initiating high potency statin, but patient reports prior history of muscle pains on Atorvastatin. Recommended to her trying Lovastatin or pravastatin, or perhaps weekly Rosuvastatin with titration as tolerated, especially given her family history. She will follow-up with her PCP within 1-2 weeks of discharge. Home Meds and New Rx's Prescriptions: New metoprolol tartrate 25 mg tablet 12.5 mg PO BID Qty: 60 RF: 0 Continued multivitamin Tablet 1 tab PO DAILY RF: 0 doxepin 50 mg Capsule 50 mg PO QHS RF: 0 aspirin [Aspir-Low] 81 mg Tablet,Delayed Release (Dr/Ec) 81 mg PO DAILY RF: 0 ascorbic acid (vitamin C) [Vitamin C] 500 mg Tablet 500 mg PO DAILY RF: 0 amlodipine [Norvasc] 10 mg Tablet 10 mg PO DAILY RF: 0 pantoprazole [Protonix] 40 mg Tablet,Delayed Release (Dr/Ec) 40 mg PO DAILY RF: 0 hydrochlorothiazide 25 mg Tablet 25 mg PO DAILY RF: 0 ergocalciferol (vitamin D2) [Vitamin D2] 50,000 unit Capsule 50,000 unit PO .Q2WEEK RF: 0 calcium carbonate-vitamin D3 [Calcium 500 + D (D3)] 500 mg(1,250mg) -125 unit Tablet 1 tab PO DAILY RF: 0 ibuprofen [IBU-200] 200 mg Tablet 600 mg PO Q6H PRNRF: 0 magnesium L-lactate [Magtab] 84 mg Tablet Extended Release 168 mg PO BID RF: 0 Discontinued bisoprolol fumarate 5 mg Tablet 5 mg PO DAILY RF: 0 Discharge Instructions Stand Alone Forms: Nursing Discharge Form Referrals: On License Of [facility] [Outside] - 02/04/19 8:00 am (NUCLEAR MEDICINE- TREADMILL STRESS TEST) Mateo Mars [Primary Care Provider] - 01/27/19 9:45 am Activity:: No Strenuous Activity Equipment/Supplies:: No Equipment Needed Diet:: Low Sodium Discharge Orders Discharge Orders: Discharge Order (Routine); Ordered 01/23/19 Ordered By: Alireza Del Angel DS: Data Vitals/I&O Vitals and I&O: Vital Signs Temperature 36.0 C L 01/23/19 07:48 Temperature Source Tympanic 01/23/19 07:48 Pulse 58 L 01/23/19 07:48 Pulse Rhythm Regular 01/23/19 07:51 Pulse 66 01/21/19 16:00 Respiratory Rate 16 01/23/19 07:48 Respiratory Effort Short of Breath 01/23/19 07:51 Respiratory Depth Normal 01/23/19 07:51 Respiratory Pattern Normal 01/23/19 07:51 Blood Pressure 142/78 H 01/23/19 07:48 Blood Pressure Mean 100 01/21/19 15:46 Blood Pressure Position Supine 01/21/19 13:51 Pulse Oximetry 99 01/23/19 07:48 Oxygen Delivery Method Room Air 01/23/19 07:48 Oxygen Flow Rate 0 01/23/19 07:48 Pain Level 0 01/23/19 03:30 Comment 01/21/19 16:27 Intake & Output 01/22/19 01/22/19 01/23/19 11:59 23:59 11:59 Intake Total 150 / 710 560 / 710 490 / 490 Output Total 600 / 1700 1100 / 1700 600 / 600 Balance -450 / -990 -540 / -990 -110 / -110 Intake: IV Oral 150 / 700 550 / 700 490 / 490 Output: Urine 600 / 1700 1100 / 1700 600 / 600 Other: Urine Color Yellow Light Pema Light Pema Urine Appearance Clear Clear Clear Urine Odor Normal None None Voiding Methods Toilet Toilet Toilet Completed studies during hospitalization [Text1]: [facility]* Norm protocol Date of study: 01/23/2019 *PATIENT PRESENTATION* Height: 157.5cm (62in) Blood Pressure: Weight: 81.8kg (180lb) BSA: 1.93m^2 Referring physician: Uzair Ivory Ordering physician: Alireza Del Angel Impressions: - Normal study after maximal exercise. - No exercise induced arrhythmias. Exam(s) 01/22/2019 Myocardial Perfusion Imaging - SPECT Regadenoson Date of study: 01/22/2019 *PATIENT PRESENTATION* Height: 157.5cm (62in) Blood Pressure: Weight: 81.8kg (180lb) BSA: 1.93m^2 Referring physician: Ricardo Pennington Ordering physician: Lathari, Alireza A Impressions: - Normal myocardial perfusion and contraction after pharmacological stress. - Low risk of cardiac events but higher compared to non-diabetics. Summary: 1. Myocardial perfusion imaging: No myocardial perfusion defects noted. 2. The calculated left ventricular ejection fraction after stress: 75%. LV global systolic function is normal. No left ventricular regional motion abnormality. 3. Baseline ECG: Normal ECG. Exam(s) a US:US echocardiogram Date of study: 01/22/2019 Transthoracic Echocardiography M-mode, complete 2D, complete spectral Doppler, and color Doppler *STUDY CONCLUSIONS* Summary: 1. Left ventricle: The cavity size was normal. There was mild focal basal hypertrophy of the septum. Systolic function was normal. The estimated ejection fraction was 55-60%. There was no dynamic obstruction. Wall motion was normal; there were no regional wall motion abnormalities. Findings consistent with diastolic dysfunction. Doppler parameters are consistent with high ventricular filling pressure. 2. Right ventricle: The cavity size was normal. Wall thickness was normal. Systolic function was normal. --------- Exam(s) 01/21/2019 a RAD:XR chest 2V PA & lateral SYMPTOMS/DIAGNOSIS: SYNCOPE, ? ACUTE DISEASE PA AND LATERAL CHEST: The heart is normal in size. The lungs are clear. The mediastinal structures and pleura appear intact. CONCLUSION: Normal chest. Labs on day of discharge: Labs from last 24 hours 01/23/19 01/23/19 06:22 06:22 WBC 4.92 RBC 4.89 Hgb 13.7 Hct 40.9 MCV 83.6 MCH 28.0 MCHC 33.5 RDW 13.4 Plt Count 376 MPV 9.6 Immature Gran % 0.2 Neutrophils % 57.2 Lymphocytes % 32.1 Monocytes % 7.5 Eosinophils % 2.8 Basophils % 0.2 Absolute Neutrophils 2.81 Absolute Lymphocytes 1.58 Absolute Monocytes 0.37 Absolute Eosinophils 0.14 Absolute Basophils 0.01 Sodium 135 L Potassium 4.1 Chloride 98 Carbon Dioxide 28.3 Anion Gap 8.7 BUN 16 Creatinine 1.01 Estimated GFR/1.73 m2 55.54 Glucose 97 Calcium 9.2 Magnesium 1.7 L [facility] Medical History Depression (Chronic) GERD (gastroesophageal reflux disease) (Chronic) HTN (hypertension) (Chronic) Myocarditis (Acute) Social History Smoking/Tobacco Use Status: Former Tobacco Use Alcohol Intake: never Substance use type: does not use Do you feel safe at home: Yes Do you feel safe in your relationship?: Yes
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
[2019-01-23 12:12] VITALS: BP 116/67; PULSE 78; RESP 18; TEMP 36.6; O2SAT 100
--- NOTE | 2019-01-23 13:25 | CHAPLAIN ---
I met Susanna's earlier, while Susanna was out for tests. Today was my first time meeting Susanna. She said that after a treadmill test, she'll be discharged today and she is very upbeat about that. She is vacationing on [place] with her , children and grandchildren and is looking forward to spending what's left of her vacation time with them. Susanna is from [place], [place], and was very complimentary o f the care she's received here.
--- NOTE | 2019-01-23 13:29 | CMDISCH_ITS ---
- If Service Date Differs Date of service: 01/23/19 Time of Service: 13:29 LACE Index Scoring Tool - Questions: Length of Stay (in days): 2 Acuity (Admit via E.D.?): Yes Comorbidities: Diabetes w/o Complication E.D. Visits: 1 - Answers: Total Score: 7 Risk of Readmission: Low Risk Care Management Discharge Reason for Hospitalization: Chest Pain, Syncope Discharge Plan: Macarena will be discharged home with no additional services. She will follow up with her PCP and independent living specialist. She will transport home via private vehicle with her . Patient/Family Education Needs: Discharge plan, limitations, follow up plan, Ask Me Three
[2019-01-23 13:54] VITALS: PULSE 61
== END 2019-01-23 13:47 | disposition home or self-care (01) ==
LOC: ER 16:05 → MS 16:26
PROVIDERS: Admitting Provider Internal Medicine; Emergency Provider Physician Assistant; PCP Internal Medicine; Visit Provider Internal Medicine
DX: R55 Syncope and collapse (principal); I51.89 Other ill-defined heart diseases; I10 Essential (primary) hypertension; K21.9 Gastro-esophageal reflux disease without esophagitis; F32.9 Major depressive disorder, single episode, unspecified; Z82.49 Family history of ischemic heart disease and other diseases of the circulatory system; E11.9 Type 2 diabetes mellitus without complications
CPT/HCPCS: 36415; 78452; 80048; 80053; 80061; 83721; 93005; 93016; 93018; 93306; 96360; 99222; 99233; 99239; 99285; J1650; 71046; 83036; 83735; 84484; 85025; 93010; 93017; 93880; 99217; 99219; 99226; G0378; J2405; J2785